=== PATIENT | female | born 1950 | race Caucasian/White ===

== ENCOUNTER → 2016-12-29 | Outpatient (CLI) | payer MEDICARE, OTHER | LOC: KOH-I 09:49 | DX: M54.2 Cervicalgia (principal); M54.5 Low back pain; R05 Cough; S22.068A Other fracture of T7-T8 thoracic vertebra, initial encounter for closed fracture; S22.088A Other fracture of T11-T12 vertebra, initial encounter for closed fracture | CPT/HCPCS: 71020; 72050; 72070; 72110 ==

== ENCOUNTER 2017-01-09 07:26 | Emergency (ER) | payer MEDICARE, OTHER | END 2017-01-09 11:00 | disposition home or self-care (01) | LOC: ER1 07:26 | DX: S20.212A Contusion of left front wall of thorax, initial encounter (principal); I10 Essential (primary) hypertension; J45.909 Unspecified asthma, uncomplicated; F17.210 Nicotine dependence, cigarettes, uncomplicated; W01.198A Fall on same level from slipping, tripping and stumbling with subsequent striking against other object, initial encounter | CPT/HCPCS: 71101; 93005; 99283 ==

== ENCOUNTER → 2021-04-05 | Outpatient (CLI) | payer MEDICARE, OTHER ==
[~2021-04-05] MED LIST: ADVAIR 250-501 EACH INH; ALBUTEROL2.5 MG/3 M INH; ALENDRONATE SOD70 MG PO; BUSPAR 10MG10 MG PO; COZAAR25 MG PO; GABAPENTIN300 MG PO; MEDROL4 MG PO; OS-CAL 500+D31 EACH PO; PREDNISONE10 MG PO; PRINIVIL5 MG PO; PROVENTIL HFA6.7 GM INH; TEGRETOL 200 M200 MG PO; VITAMIN D250000 UNIT PO; [UNRECOGNIZED DRUG - OTHER] INH
== END ==
LOC: KOH-I 03-31 13:30
DX: Z87.891 Personal history of nicotine dependence (principal)
CPT/HCPCS: 71271